=== PATIENT | female | born 1975 ===

== ENCOUNTER 2024-09-16 03:34 | Emergency (ER) | payer MEDICAID, OTHER ==
[~2024-09-16] VITALS: Ht 162.6 cm; Wt 63.5 kg
[2024-09-16 04:00] VITALS: PULSE 98; RESP 12; O2SAT 96
[2024-09-16 04:19] LABS: Hemoglobin 10.7 g/dL (12.2-16.2); Nucleated Red Blood Cells % 0.0 %
[2024-09-16 04:22] LABS: Hematocrit 30.7 % (36.0-46.0); Mean Corpuscular Hemoglobin 37.7 pg (28.0-32.0); Mean Corpuscular Volume 107.7 fL (80.0-100.0)
[2024-09-16] MEDS: TETANUS-DIPTH-ACEL PERTUSSIS 0.5ML SYR Tdap IM ONE (04:37)
[2024-09-16 04:40] LABS: Anion Gap 11 (5-15); Carbon Dioxide 28 mmol/L (20-31); Total Protein 6.3 g/dL (5.7-8.2)
[2024-09-16 04:41] LABS: Albumin 3.8 g/dL (3.2-4.8)
[2024-09-16] MEDS: LIDOCAINE 1% HCL (LOCAL ANESTH.) INJ 20ML MDV ONE (04:43)
[2024-09-16] MEDS: LIDOCAINE 1% HCL (LOCAL ANESTH.) INJ 20ML MDV IJ ONE (04:43)
[2024-09-16] MEDS: ceFAZolin 1GM/50ML 50 ML IV ONE (04:44)
[2024-09-16 04:45] LABS: Alanine Aminotransferase 55 U/L (7-40); Alkaline Phosphatase 372 U/L (46-116); BUN/Creatinine Ratio 8.5 (10.0-20.0); Bilirubin, Total 8.2 mg/dL (0.2-1.0); Blood Urea Nitrogen < 5 mg/dL (9-23); Calcium 8.2 mg/dL (8.7-10.4); Chloride 90 mmol/L (98-107); Glucose 165 mg/dL (74-106); Potassium 2.7 mmol/L (3.5-5.1); Sodium 129 mmol/L (136-145)
--- NOTE | 2024-09-16 04:48 | DVH ---
EXAM: CT HEAD WITHOUT CONTRAST INDICATION: Head injury TECHNIQUE: CT of the head without intravenous contrast. Coronal and sagittal reformatted images are s ubmitted. Radiation Dose : 1. Head: CT Dose: CTDI volume is 66.97 mGy. Dose-length product is 2178.27 mGy*cm The dose indicators for CT are the volume Computed Tomography (CT) Dose Index (CTDIvol) and the Dose Length Product (DLP), and are measured in units of mGy and mGy-cm, respectively. These indicators are not patient dose, but values generated from the CT scanner acquisition factors. The report includes radiation exposure data for exposures received during this examination. All CT scans at this medical facility are performed using dose modulation techniques as appropriate to a performed exam including the following: Automated exposure control was utilized; adjustment of the MA and/or KV according to patient size; and use of iterative reconstruction technique. COMPARISON: None FINDINGS: Acute subdural hemorrhage along the falx measuring 3 mm in thickness. Generalized volume loss. Preser vation of long-white matter differentiation. The ventricles, sulci and cisterns are age appropriate. The visualized paranasal sinuses and mastoid air cells are clear. No depressed calvarial fracture. Posterior scalp laceration and hematoma. Left frontal scalp swelling . IMPRESSION: 1. Acute subdural hemorrhage along the falx measuring 3 mm in thickness. No significant mass effect. 2. Posterior scalp laceration and hematoma. Left frontal scalp swelling.
--- NOTE | 2024-09-16 04:52 | DVH ---
CLINICAL INDICATION: jaw injury (chin) TECHNIQUE: Noncontrast CT of the facial bones was performed. Sagittal and coronal reformatted images are provided. COMPARISON: None CT Dose: CTDI volume is 66.97 mGy. Dose-length product is 1293.1 mGy*cm FINDINGS: No acute facial bone fracture. Orbits are intact and the intraorbital contents are symmetric. Pteryg oid plates intact. Paranasal sinuses clear. Mastoid air cells are patent. Temporomandibular joints are symmetric. Diffuse superficial soft tissue density which along the anterior neck and chin suggesting blood produ cts and soft tissue swelling. IMPRESSION: 1. No acute facial bone fracture. 2. Diffuse superficial soft tissue density in the anterior neck and chin suggesting blood and soft ti ssue swelling. All CT scans at this medical facility are performed using dose modulation techniques as appropriate t o a performed exam including the following: Automated exposure control was utilized; adjustment of th e MA and/or KV according to patient size; and use of iterative reconstruction technique.
--- NOTE | 2024-09-16 05:05 | ED.PDOC ---
History of Present Illness HPI Comments 48-year-old is brought in by ambulance for chief complaint of facial laceration wound to chin and lump to posterior side of head, with the associated pain, status post unwitnessed fall. Patient endorses on having a history of sleep eating and waking up on the floor of her kitchen with symptoms after eating blueberries, this morning. Per EMS report, patient was actively bleeding and was stressed accordingly, upon arrival on scene. Vitals were noted to have been stable and within normal limits. Blood lucose of 181. Patient, at time of assessment, denies having any additional injuries, dizziness, lightheadedness, weakness, numbness, tingling, or further associated symptoms. Additional significant history of hypertension and frequent headaches. Chief Complaint: Fall Injury Time Seen by MD: 03:40 Reviewed Notes: Nurses Notes, Felt Hat Inspector And Packer Notes, Medications, Allergies Allergies: Coded Allergies: NO KNOWN ALLERGIES (Unverified , 09/16/24) Information Source: Patient, Emergency Med Personnel Mode of Arrival: EMS Severity: Moderate Timing: Hours Duration: Since onset Prehospital treatment: 12 Lead EKG, Retail Operations Specialist, Treatment (Laceration dressing) Review of Systems: REVIEW OF SYSTEMS: No fever, no chills, or fatigue HEENT: Chin pain; No sore throat, no earache, no congestion, no neck pain. Cardiac: No chest pain. No palpitations. Lungs: No shortness of breath, no cough. GI: No nausea, no vomiting, no diarrhea, no constipation, no abdominal pain : No dysuria, frequency, or urgency. No hematuria. Musculoskeletal: No joint pain , no joint swelling, no extremity edema. Skin: Facial laceration to chin, lump to posterior side of head; No rash, no itching. Neuro: Headache, no dizziness, no weakness Vital Signs Vital Signs Date Time Temp Pulse Resp B/P (MAP) Pulse Ox O2 Delivery O2 Flow Rate FiO2 09/16/24 05:05 94 09/16/24 05:00 20 104/64 (77) 99 09/16/24 03:49 97.8 97.8 Physical Exam General: Awake, alert and oriented. No acute distress. Skin: Hematoma to the posterior side of head. 5 cm laceration to left lateral chin. Otherwise, skin is warm, dry, and intact. Appropriate color for ethn icity. HEENT: The head is normocephalic. Noted hematoma to posterior side of head. Conjunctivae are clear without exudates or hemorrhage. Bilateral Sclera icterus. EOM are intact. No signs of nystagmus. Eyelids are normal in appearance without swelling or lesions. Oral mucosa is pink and moist. Lower facial swelling Neck: The neck is supple with normal range of motion. No JVD. Cardiac: Heart rate and rhythm are normal. No murmurs, gallops, or rubs are auscultated. Respiratory: No signs of respiratory distress. Lung sounds are clear in all lobes bilaterally without rales, rhonchi, or wheezes. Abdominal: Abdomen is soft, non-tender without distention, guarding or rigidity. Bowel sounds are present and normoactive in all four quadrants. Extremities: Upper and lower extremities are atraumatic in appearance without deformity or edema. Neurological: The patient is awake, alert and oriented to person, place, and time with normal speech. Speech is clear. There is no facial asymmetry. Strength in upper and lower extremities intact Psychiatric: Appropriate mood and affect. Good judgement and insight. Past Medical History PAST MEDICAL HISTORY: HTN Past Medical History (Other): sleeping eating Headaches Surgical History: Denies all surgeries FREIGHT SORTER History: Denies all FREIGHT SORTER Hx Family History Family History: Unknown Social History Smoker: Non-Smoker Alcohol: Denies ETOH Use Drugs: Denies Drug Use Lives In: Home Was a procedure done? Was a procedure done?: Yes Sedation Sedation?: No Laceration Repair : Location Left lateral chin Length 5 cm Anesthetic: Lidocaine, Without epi Laceration Repair Prep: Saline, Shur-Clens, by Irrigation, Manual Scrub Laceration Repair Wound Comple: epidermis/dermis repair Laceration Repair: Number of sutures (8), Skin Informed consent obtained: Yes Risks, benefits, and alternati: Yes EKG EKG : Pulse Rate (adult): 94 [place]: Normal Cardiac Rhythm: NSR Block: None Hypertrophy: None ST: Normal Comments No STEMI Differential Dx Considerations may include: Differential diagnoses considered include but are not limited to closed head injury, skull fracture, TBI, long bone fracture, rib fracture, pneumothorax, spinal fracture, spinal injury, cardiac contusion, organ laceration, pelvic fracture, laceration, soft tissue injury, vascular injury, other X-Ray, Labs, Meds, VS Vital Signs Date Time Temp Pulse Resp B/P (MAP) Pulse Ox O2 Delivery O2 Flow Rate FiO2 09/16/24 05:05 94 09/16/24 05:00 99 20 104/64 (77) 99 09/16/24 04:00 98 12 96/68 (77) 96 09/16/24 03:49 94 09/16/24 03:49 97.8 100 16 110/76 (87) 95 97.8 Lab Test 09/16/24 04:03 Range/Units White Blood Count 4.2 L 4.4-10.8 10^3/uL Red Blood Count 2.85 L 4.0-5.20 10^6/uL Hemoglobin 10.7 L 12.2-16.2 g/dL Hematocrit 30.7 L 36.0-46.0 % Mean Corpuscular Volume 107.7 H 80.0-100.0 fL Mean Corpuscular Hemoglobin 37.7 H 28.0-32.0 pg Mean Corpuscular Hemoglobin Concent 35.0 32.0-36.0 g/dL Red Cell Distribution Width 13.4 11.8-14.3 % Platelet Count 118 L 140-450 10^3/uL Mean Platelet Volume 8.6 6.9-10.8 fL Neutrophils (%) (Auto) 81.0 H 37.0-80.0 % Lymphocytes (%) (Auto) 8.0 L 10.0-50.0 % Monocytes (%) (Auto) 10.6 0.0-12.0 % Eosinophils (%) (Auto) 0.0 0.0-7.0 % Basophils (%) (Auto) 0.4 0.0-2.0 % Neutrophils # (Auto) 3.4 1.6-8.6 10 ^3/uL Lymphocytes # (Auto) 0.3 L 0.4-5.4 10 ^3/uL Monocytes # (Auto) 0.4 0-1.3 10 ^3/uL Eosinophils # (Auto) 0 0-0.8 10 ^3/uL Basophils # (Auto) 0 0-0.2 10 ^3/uL Nucleated Red Blood Cells 0.0 % Sodium Level 129 L 136-145 mmol/L Potassium Level 2.7 L 3.5-5.1 mmol/L Chloride Level 90 L 98-107 mmol/L Carbon Dioxide Level 28 20-31 mmol/L Anion Gap 11 5-15 Blood Urea Nitrogen < 5 L 9-23 mg/dL Creatinine 0.59 0.550-1.02 mg/dL Glomerular Filtration Rate Calc 110 >90 mL/min BUN/Creatinine Ratio 8.5 L 10.0-20.0 Serum Glucose 165 H 74-106 mg/dL Calcium Level 8.2 L 8.7-10.4 mg/dL Total Bilirubin 8.2 H 0.2-1.0 mg/dL Aspartate Amino Transferase (AST) 170 H 13-40 U/L Alanine Aminotransferase (ALT) 55 H 7-40 U/L Alkaline Phosphatase 372 H 46-116 U/L Troponin I High Sensitivity < 3 L </=34 ng/L Total Protein 6.3 5.7-8.2 g/dL Albumin 3.8 3.2-4.8 g/dL Plasma/Serum Blood Alcohol < 3.0 <10 mg/dL Current Medications Medications (Trade) Dose Ordered Sig/Bhumi Route Start Time Stop Time Status Last Admin Cefazolin Sodium 50 ml @ 100 mls/hr ONCE ONCE IV 09/16/24 04:00 09/16/24 04:29 DC 09/16/24 04:44 Diphtheria/ Tetanus/Acell Pertussis (Boostrix T-Dap) 0.5 ml ONCE ONCE IM 09/16/24 04:00 09/16/24 04:01 DC 09/16/24 04:37 Lidocaine HCl (Xylocaine 1%) ONCE ONCE IJ 09/16/24 04:45 09/16/24 04:46 DC 09/16/24 04:43 Levetiracetam 100 ml @ 400 mls/hr ONCE ONCE IV 09/16/24 05:45 09/16/24 05:59 09/16/24 05:47 Dexamethasone Sodium Phosphate 10 mg/Dextrose 51 ml @ 204 mls/hr ONCE ONCE IV 09/16/24 05:45 09/16/24 05:59 09/16/24 05:56 Lorazepam (Ativan Inj) 1 mg ONCE ONCE IV 09/16/24 06:00 09/16/24 06:01 09/16/24 05:38 Time of 1ST Reevaluation: 04:10 Reevaluation 1ST: Unchanged Patient Education/Counseling: Treatment Family Education/Counseling: No Family Present SEPSIS Sepsis Screen Date sepsis recognized/suspect: Sep 16, 2024 Time Sepsis recognized/suspect: 354 Recent Procedure: No On Antibiotic Therapy: No Respiratory Rate >20: No Heart Rate >90: Yes Temp<36 C (96.8 F) or >38.3 C: No SBP <90 or MAP <65 mmHG: No New Acute Mental Status Change: No Is the patient on CPAP, BIPAP,: No Physician Orders Drug Screen (09/16/24 03:42) Urinalysis (09/16/24 03:42) Head Without Contrast (09/16/24 03:42) Maxillofacial Without (09/16/24 03:42) Imaging Transfer Request (09/16/24 05:12) Prothrombin Time W/ Inr (09/16/24 05:29) Levetiracetam 1000 Mg/100ml (Levetiracet (09/16/24 05:45) Dexamethasone Injection (Decadron Inject (09/16/24 05:45) Seizure Precautions (09/16/24 ) Lorazepam 2mg/Ml Inj (Ativan Inj) (09/16/24 06:00) Vital Signs Date Time Temp Pulse Resp B/P (MAP) Pulse Ox O2 Delivery O2 Flow Rate FiO2 09/16/24 05:05 94 09/16/24 05:00 99 20 104/64 (77) 99 09/16/24 04:00 98 12 96/68 (77) 96 09/16/24 03:49 94 09/16/24 03:49 97.8 100 16 110/76 (87) 95 97.8 Laboratory Tests Test 09/16/24 04:03 White Blood Count 4.2 10^3/uL (4.4-10.8) L Medications Medications Dose Ordered Sig/Bhumi Route Start Time Stop Time Status Last Admin Dose Admin Cefazolin Sodium 50 ml @ 100 mls/hr ONCE ONCE IV 09/16/24 04:00 09/16/24 04:29 DC 09/16/24 04:44 Dexamethasone Sodium Phosphate 10 mg/Dextrose 51 ml @ 204 mls/hr ONCE ONCE IV 09/16/24 05:45 09/16/24 05:59 09/16/24 05:56 Diphtheria/ Tetanus/Acell Pertussis 0.5 ml ONCE ONCE IM 09/16/24 04:00 09/16/24 04:01 DC 09/16/24 04:37 Levetiracetam 100 ml @ 400 mls/hr ONCE ONCE IV 09/16/24 05:45 09/16/24 05:59 09/16/24 05:47 Lidocaine HCl ONCE ONCE IJ 09/16/24 04:45 09/16/24 04:46 DC 09/16/24 04:43 Lorazepam 1 mg ONCE ONCE IV 09/16/24 06:00 09/16/24 06:01 09/16/24 05:38 Departure 1 Departure Time of Disposition: 05:58 Impression: Primary Impression: Traumatic injury of head Additional Impression: Subdural hematoma Disposition: 02 SHORT TERM HOSPITAL Condition: Serious Comments 48-year-old female with traumatic head injury resulting in subdural hematoma, laceration to the chin Patient neurologically intact on arrival to the ED @5:[address] Savage at [facility] who accepts patient for transfer @5:50 the patient witnessed having approximately 1 minute tonic-clonic seizure. Patient postictal after. 2 mg Ativan, 1 g of Keppra, 10 mg Decadron administered. Extensive evaluation was performed in attempt to identify or rule out: (See differential diagnosis section) The following tests were ordered, and results were reviewed by me and discussed with patient: (See diagnostic results section) The following test were independently interpreted by me: EKG I reviewed and agreed with the following test results read by other providers: Head and maxillofacial CT without contrast I reviewed the following notes from the pt's past medical encounters: N/A Additional information was gathered from interviewing the following independent historians: EMS Discussion of management or test interpretation with external physician/other qualified health assistant child care teacher: Yes Addressed acute or chronic illness that poses a threat to life or bodily function: Subdural hematoma Decision regarding hospitalization or escalation of hospital level of care: Risk and benefits of admission for further treatment of patient's condition was considered. Due to patient's current clinical condition, high risk of decline and poor outcome if discharged and need for further inpatient management and monitoring, patient will be admitted to the hospital. Drug therapy requiring intensive monitoring for toxicity: IV Keppra, IV Ativan Parenteral controlled substances: N/A Decision regarding elective major surgery with identified patient or procedure risk factors: N/A Decision regarding emergency major surgery: N/A Decision not to resuscitate or to de-escalate care because of poor prognosis: N/A Diagnosis or treatment significantly limited by social determinants of health: N/A Critical Care Note Critical Care Time?: No Stability Stability form required: No Heart Score Heart Score: Heart Score Response (Comments) Value History N/A 0 EKG N/A 0 Age N/A 0 Risk Factors N/A 0 Troponin N/A 0 Total 0 I personally scribed for ROSETTA YODER MD ([email or web address]) on 09/16/24 at 05:05. Electronically submitted by Ken Iglesias [email or web address]). ROSETTA YODER MD Sep 16, 2024 05:05
[2024-09-16] MEDS: LORazepam 2MG/ML-1ML VIAL IV ONE (05:38)
[2024-09-16] MEDS: levETIRAcetam 1000 mg/100ml 100 ML IV ONE (05:47)
--- NOTE | 2024-09-16 05:49 | ECG ---
[facility] Test Date: 2024-09-16 Test Time: 03:49:42 Pat Name: MALGORZATA WASHINGTON Department: ED Room: Gender: F Merchandising Stock Associate: MARY : 1975 Requested By: ROSETTA YODER Order Number: [id number] Reading MD: Jeferson Magana Measurements Intervals Hughes Rate: 94 P: 70 MA: 130 QRS: 27 QRSD: 96 T: -38 QT: 440 QTc: 551 Interpretive Statements Sinus rhythm Nonspecific T abnormalities, inferior leads Prolonged QT interval Electronically Signed On 09-17-2024 19:04:51 PDT by Jeferson Magana Please click the below link to view image of tracing.
[2024-09-16] MEDS: LORazepam 2MG/ML-1ML VIAL ONE (05:57)
[2024-09-16 06:15] VITALS: BP 108/70; PULSE 107; RESP 20; TEMP 97.6; O2SAT 100
[2024-09-16 07:16] LABS: INR 1.41 (0.9-1.15); Prothrombin Time 14.4 sec (9.3-11.8)
== END 2024-09-16 06:21 | disposition short-term general hospital (02) ==
LOC: ER 03:34 → EDBD 03:34 → ER 06:21
DX: S01.81XA Laceration without foreign body of other part of head, initial encounter (principal); S06.5XAA Traumatic subdural hemorrhage with loss of consciousness status unknown, initial encounter; I10 Essential (primary) hypertension; W18.39XA Other fall on same level, initial encounter; Y93.89 Activity, other specified; Y92.89 Other specified places as the place of occurrence of the external cause; Y99.8 Other external cause status
CPT/HCPCS: 12013; 36415; 70450; 70486; 80053; 80320; 84484; 85025; 85610; 90471; 90715; 93005; 96365; 96367; 96375; 99285; J0690; J1100; J1953; J2003; J2060; J7060